=== PATIENT | female | born 1995 | race Caucasian/White ===

== ENCOUNTER 2019-05-31 06:45 | Inpatient (IN) | payer SELFPAY ==
[2019-05-31] VITALS (8 sets, daily range): BP systolic 80–128; BP diastolic 36–83
[~2019-05-31] VITALS: Ht 172 cm; Wt 86.4 kg
--- NOTE | 2019-05-31 06:55 | NUR ---
ROBERT BOOTH presented to unit via W/C from HOME/ED, accompanied by FAMILY, with c/o CONTRACTIONS, POSS WATER BROKE. ROBERT BOOTH weighed, gowned, voided, and to bed. EFHM and TOCO applied, VS taken. ROBERT BOOTH oriented to bed controls, call light, TV, heat, and A/C controls.
[2019-05-31] MEDS ORDERED: LACTATED RINGERS 1,000 ML IV ONE (07:11)
[2019-05-31] MEDS ORDERED: CITRIC ACID/SOB CIT (BICITRA) 30 ML UDC ONE (07:19)
[2019-05-31] MEDS ORDERED: METOCLOPRAMIDE INJ 10 MG/2 ML (REGLAN) ONE (07:19)
[2019-05-31] MEDS ORDERED: FAMOTIDINE 20MG/2ML IV (PEPCID) ONE (07:19)
[2019-05-31] MEDS ORDERED: ceFAZolin 2 GM IV Premixed 50 ML ONE (07:19)
[2019-05-31] MEDS ORDERED: LACTATED RINGERS 1,000 ML IV PRN ×2 (07:21)
[2019-05-31 07:30] LABS: BASOPHILS % (AUTO) 0 % (0-10); EOSINOPHILS % (AUTO) 0 % (0-10); HEMATOCRIT 42 % (35-52); HEMOGLOBIN 13.9 G/DL (11.5-16.0); LYMPHOCYTES # (AUTO) 1.3 X 10^3 (1.0-4.0); LYMPHOCYTES % (AUTO) 6 % (12-44); MEAN CORPUSCULAR HEMOGLOBIN 31 PG (25-34); MEAN CORPUSCULAR HGB CONC 33 G/DL (32-36); MEAN CORPUSCULAR VOLUME 94 FL (80-99); MEAN PLATELET VOLUME 11.5 FL (7.4-10.4); MONOCYTES # (AUTO) 1.2 X 10^3 (0.0-1.0); MONOCYTES % (AUTO) 6 % (0-12); NEUTROPHILS # (AUTO) 19.2 X 10^3 (1.8-7.8); NEUTROPHILS % (AUTO) 88 % (42-75); PLATELET COUNT 185 10^3/uL (130-400); RED CELL DISTRIBUTION WIDTH 14.2 % (10.0-14.5); WHITE BLOOD COUNT 21.7 10^3/uL (4.3-11.0)
[2019-05-31] MEDS ORDERED: METOCLOPRAMIDE INJ 10 MG/2 ML (REGLAN) IV ONE (07:30)
[2019-05-31] MEDS ORDERED: FAMOTIDINE 20MG/2ML IV (PEPCID) IV ONE (07:30)
[2019-05-31] MEDS ORDERED: CITRIC ACID/SOB CIT (BICITRA) 30 ML UDC PO ONE (07:30)
[2019-05-31] MEDS ORDERED: fentaNYL INJECTION 100 MCG/2 ML AMP ONE (07:38)
[2019-05-31] MEDS ORDERED: OXYTOCIN/NORMAL SALINE 1,000 ML IV ONE (07:39)
--- NOTE | 2019-05-31 07:39 | History & Physical-OB ---
OB - Chief Complaint & HPI Date/Time Date of Admission: Date of Admission: May 31, 2019 at 07:11 Date seen by a Provider: May 31, 2019 Time Seen by a Provider: 07:30 Chief Complaint/History Hx : 2 Hx Para: 1 Expected Date of Delivery: May 31, 2019 Gestational Age in Weeks: 2 Gestational Age in Days: 1 Indication for : desires repeat Admission Nurse Assessment Rev: Yes History of Labs No care Other Patient presents today with 9 cm dilatation and previous , no care. SROM at 0200, Patient reports that today is her due date. She had care with her first , but had for malpresentation. She wants to , however without no care, US or other counseling it was advised against strongly. Allergies and Home Medications Allergies Coded Allergies: No Known Drug Allergies (Unverified , 05/31/19) Patient Home Medication List Home Medication List Reviewed: Yes OB - History Hx of Present Care: No Other Concerns: Patient has none, but no prior contact Patient Past Medical History denies OB - Admission Exam Physical Exam HEENT: NCAT Heart: Rhythm Normal Lungs: Clear Abdomen: Gravid Reflexes: Normal Cervical Dilatation: 9cm Effacement: 100% Station: -1 Membranes: Intact Amniotic Fluid: Clear Heart Rate: 130's Accelerations: Accelerations Present Decelerations: Variable Decelerations Short Term Variability: Present Contractions on Admission: < 5 Minutes Apart Intensity: Mild Labs Laboratory Tests Test 05/31/19 07:20 Range/Units White Blood Count 21.7 H 4.3-11.0 10^3/uL Red Blood Count 4.44 4.35-5.85 10^6/uL Hemoglobin 13.9 11.5-16.0 G/DL Hematocrit 42 35-52 % Mean Corpuscular Volume 94 80-99 FL Mean Corpuscular Hemoglobin 31 25-34 PG Mean Corpuscular Hemoglobin Concent 33 32-36 G/DL Red Cell Distribution Width 14.2 10.0-14.5 % Platelet Count 185 130-400 10^3/uL Mean Platelet Volume 11.5 H 7.4-10.4 FL Neutrophils (%) (Auto) 88 H 42-75 % Lymphocytes (%) (Auto) 6 L 12-44 % Monocytes (%) (Auto) 6 0-12 % Eosinophils (%) (Auto) 0 0-10 % Basophils (%) (Auto) 0 0-10 % Neutrophils # (Auto) 19.2 H 1.8-7.8 X 10^3 Lymphocytes # (Auto) 1.3 1.0-4.0 X 10^3 Monocytes # (Auto) 1.2 H 0.0-1.0 X 10^3 Eosinophils # (Auto) 0.0 0.0-0.3 10^3/uL Basophils # (Auto) 0.0 0.0-0.1 10^3/uL OB - Assessment/Plan/Diagnosis Assessment Assessment: section Admission Dx 23 yo @ 40 weeks, per poor dating Previous 9 cm dilatation No care Admission Status: Inpatient Order (span 2 midnights) Reason for Inpatient Admission: Repeat Term No care Plan Plan: Section PEE ARIAS DO May 31, 2019 07:39 POS
[2019-05-31] MEDS ORDERED: ONDANSETRON 4 MG/2 ML (SDV) Z0FRAN IVP PRN (08:00)
[2019-05-31] MEDS ORDERED: BISACODYL 10 MG SUPP (DULCOLAX) PR PRN (08:00)
[2019-05-31] MEDS ORDERED: MEASLES,MUMPS,RUBELLA 1 EA INJ SC SCH (08:00)
[2019-05-31] MEDS ORDERED: TETANUS,DIPTH,PERTUSS P/F (BOOSTRIX) 0.5 ML VIAL IM SCH (08:00)
[2019-05-31] MEDS ORDERED: HYDROcodone/APAP 5 MG/325 MG (LORTAB) TAB PO PRN (08:00)
[2019-05-31 08:16] LABS: BAND NEUTROPHILS 1 %; BASOPHILS % (MANUAL) 0 %; EOSINOPHILS % (MANUAL) 0 %; LYMPHOCYTES % (MANUAL) 6 %; MONOCYTES % (MANUAL) 4 %; NEUTROPHILS % (MANUAL) 89 %
[2019-05-31 08:17] LABS: RBC MORPH NORMAL
[2019-05-31] MEDS ORDERED: ceFAZolin 2 GM IV Premixed 50 ML IV ONE (08:45)
[2019-05-31] MEDS ORDERED: OXYTOCIN/NORMAL SALINE 500 ML IV ONE (09:34)
[2019-05-31] MEDS: KETOROLAC 30 MG/ML VIAL IV SCH ×3 (09:38→21:01)
--- NOTE | 2019-05-31 09:47 | NUR ---
ferrell catheter dc'd. 50cc urine noted. keily-care offered. FFu/2. lt rubra noted. v-pad and panties in place.
--- NOTE | 2019-05-31 09:57 | NUR ---
pt transferred to room 307 via bed with this RN @ side. call light within reach.
[2019-05-31] MEDS ORDERED: FLU QUADRIvalent (5+ YOA) 2019-2020 (AFLURIA) 0.5 ML IM ONE (10:15)
--- NOTE | 2019-05-31 13:57 | OPERATIVE REPORT ---
DATE OF SERVICE: 05/31/2019 PREOPERATIVE DIAGNOSES: 1. A 23-year-old G2, P1 at an estimated due date of 40 weeks' gestation based on the patient's history. 2. No care. 3. Previous section. POSTOPERATIVE DIAGNOSES: 1. A 23-year-old G2, P1 at an estimated due date of 40 weeks' gestation based on the patient's history. 2. No care. 3. Previous section. PROCEDURE: Repeat low transverse section. SURGEON: Ronald Arias DO QUALITY ANALYST: Ramon Rosario MD who is necessary for retraction of vital structures throughout the procedure. ANESTHESIA: Spinal. ESTIMATED BLOOD LOSS: 500 mL. URINE OUTPUT: 250 mL clear at the end of the procedure. FLUIDS: 1500 mL lactated Ringer's solution. FINDINGS: A live male infant weighing 7 pounds 3 ounces, Apgars of 8 and 9. Grossly normal appearing uterus, bilateral fallopian tubes and ovaries with serosal adhesions of the anterior uterine fundus to the anterior omentum and peritoneal wall. SPECIMEN SENT: Placenta. INDICATIONS FOR PROCEDURE: This 23-year-old female was a patient who had had no care and went into active labor at home at approximately midnight to 2 a.m. She reports spontaneous rupture of membranes at 2:00 a.m. Upon presenting to the hospital, she was found to be 9 cm dilated without having any further information of the patient and any prior lab works. I discussed with the patient the concerning risk of and risks involved with the with a patient with no care as well as concerns of no imaging of the fetus prior to delivery and unknown anatomic abnormalities, which although were unlikely were still a risk factor. After everything was discussed with the patient my highly recommended proceeding was to repeat . She was agreeable, consent was obtained, the patient was taken to the operating room. OPERATIVE REPORT IN DETAIL: Once in the operating room, spinal anesthesia was found to be adequate, she was placed in the supine position with leftward tilt, prepped and draped in normal sterile fashion. Timeout was performed and anesthesia was tested. A Pfannenstiel skin incision was then made with a knife through the previously existing scar and carried down to underlying fascia using Bovie cautery. Fascial incision extended laterally using Bovie cautery. Superior aspect of the fascial incision was then grasped with Lauren clamps, tented up and dissected off the underlying rectus muscles. The inferior aspect of the fascial incision was then grasped with Lauren clamps, tented up and dissected off the underlying rectus muscles. Rectus muscles were then dissected down the midline using sharp dissection, which I am able to extend it superiorly and inferiorly using Metzenbaum scissors. I then encountered the preperitoneal fatty tissue in the peritoneum. It is entered bluntly and extended using blunt traction. There are some filmy adhesions previously mentioned of the anterior uterus that had to be taken down in order to identify the lower uterine segment, which was found to be thinned out. I made a low transverse incision into the vesicouterine peritoneum and bluntly dissected off the lower uterine segment, creating a bladder flap. I then proceeded with my myotomy until membranes were visualized, at which point I extended the uterine incision laterally and superiorly using bandage scissors. The was found in vertex presentation. With gentle fundal pressure, the 's head was elevated up to the incision and delivered through the incision where the nares and oropharynx were bulb suctioned. Nuchal cord was reduced x1. Anterior and posterior shoulders were delivered. Infant was then brought to the operative field where the cord was doubly clamped and cut. Infant was taken off the field by Dr. Rosario for further attendance. Cord blood was collected. Three-vessel cord was intact. Placenta is delivered spontaneously thereafter. IV Pitocin was initiated to facilitate uterine contraction. Uterine fundus became firmer by manual massage. The uterus was then exteriorized and cleared of all endometrial clots and debris. I then proceeded with closing the uterine incision using 0 Vicryl suture in running locked fashion. Second layer imbricating 0 Monocryl was placed. Excellent hemostasis was noted after doing this, there is some bleeding on the anterior uterine fundus from taking down these adhesions. They were made hemostatic by placing two separate 3-0 Vicryl sutures in a [id number] fashion. I then covered this area with Interceed to prevent adhesion formation after I copiously irrigated the pelvis using normal saline. There was no active bleeding noted from any of my dissection planes. I then placed Interceed over my low transverse incision as well. I then removed the Vinod ring retractor and I proceeded with closing the peritoneum using 3-0 Vicryl suture in a running fashion. The rectus muscle reapproximated using 3-0 Vicryl suture in interrupted fashion. The fascia was reapproximated using 0 Vicryl suture in running fashion. Subcutaneous tissue was reapproximated using 3-0 plain in interrupted subcutaneous stitch and skin reapproximated using 4-0 Monocryl in a running subcuticular. Dermabond was applied to this incision to the incision and sterile dressing was placed over this. The patient tolerated the procedure well and sent to recovery area in stable condition. Lap and sponge counts were correct at the end of the procedure. Instrument counts were correct as well. Job ID: [id number] DocumentID: [id number] Dictated Date: 05/31/2019 09:09:33 Pole Climber Date: 05/31/2019 13:56:42 Dictated By: RONALD ARIAS DO
[2019-05-31] MEDS ORDERED: CATHETER FLUSH 10 ML SYR IV SCH (14:00)
--- NOTE | 2019-05-31 14:35 | NUR ---
assisted up to BR. voided without difficulty. keily-care offered.
--- NOTE | 2019-05-31 15:06 | NUR ---
report given to next shift.
[2019-05-31] MEDS: DOCUSATE SODIUM 100 MG (COLACE) CAP PO SCH ×2 (18:07→21:02)
[2019-06-01 00:45] VITALS: BP 108/71
[2019-06-01] MEDS: KETOROLAC 30 MG/ML VIAL IV SCH (03:41)
[2019-06-01 03:55] VITALS: BP 112/68
[2019-06-01 05:39] LABS: BASOPHILS % (AUTO) 0 % (0-10); EOSINOPHILS # (AUTO) 0.2 10^3/uL (0.0-0.3); EOSINOPHILS % (AUTO) 1 % (0-10); HEMATOCRIT 34 % (35-52); HEMOGLOBIN 10.8 G/DL (11.5-16.0); LYMPHOCYTES # (AUTO) 1.7 X 10^3 (1.0-4.0); LYMPHOCYTES % (AUTO) 13 % (12-44); MEAN CORPUSCULAR HEMOGLOBIN 31 PG (25-34); MEAN CORPUSCULAR HGB CONC 32 G/DL (32-36); MEAN CORPUSCULAR VOLUME 97 FL (80-99); MEAN PLATELET VOLUME 11.5 FL (7.4-10.4); MONOCYTES # (AUTO) 1.1 X 10^3 (0.0-1.0); MONOCYTES % (AUTO) 8 % (0-12); NEUTROPHILS # (AUTO) 10.5 X 10^3 (1.8-7.8); NEUTROPHILS % (AUTO) 78 % (42-75); PLATELET COUNT 145 10^3/uL (130-400); RED CELL DISTRIBUTION WIDTH 14.5 % (10.0-14.5); WHITE BLOOD COUNT 13.5 10^3/uL (4.3-11.0)
--- NOTE | 2019-06-01 07:15 | Progress Note ---
Standard Progress Note Progress Notes/Assess & Plan Date Seen by a Provider: Jun 01, 2019 Time Seen by a Provider: 07:00 Progress/Assessment & Plan Ms. Townsend had presented to the hospital 9 cm dilated, subsequently delivered by Dr. Joyce in my absence. When I saw Ms. Townsend she was without complaint and doing quite well. I will see her tomorrow for discharge. She was told to inform the Nursing Staff with any problems or complaints Assessment: from a Normal Spontaneous Vaginal Delivery Plan: Pain management and care. Final Diagnosis Intrauterine at 39 1/7 weeks--delivered BUTCH NAPOLES DO Jun 01, 2019 07:15 POS
--- NOTE | 2019-06-01 07:29 | Postpartum Progress Note ---
Note Note Day # 1 Subjective: Patient is without complaints. Ambulating, voiding. Tolerating a regular diet without nausea or vomiting. Normal lochia. Pain is well controlled with oral pain medications. Objective: Physical Exam: General - Alert and oriented, no apparent distress Abdomen - Soft, appropriately tender to palpation, non-distended, fundus firm at umbilicus Extremities - no edema, negative Angel's bilaterally Incision- c/d/i Assessment: POD 1 RLTCS Acute blood loss anemia Plan: Routine care. Encourage breast feeding. Encourage ambulation. Ferrous sulfate supplementation. Plan for discharge tomorrow Vitals - Labs Vital Signs - I&O Vital Signs Date Time Temp Pulse Resp B/P (MAP) Pulse Ox O2 Delivery O2 Flow Rate FiO2 06/01/19 03:55 36.8 97 18 112/68 (83) 97 Room Air 06/01/19 00:45 36.8 92 18 108/71 (83) 99 Room Air 05/31/19 21:05 37.5 98 18 127/79 (95) 99 Room Air 05/31/19 15:50 37.0 100 18 116/68 (84) 97 Room Air 05/31/19 12:31 36.7 98 18 121/78 (92) 99 Room Air 05/31/19 09:42 36.0 16 112/70 (84) 100 Room Air 05/31/19 09:42 36.0 81 18 112/70 (84) 100 Room Air 05/31/19 09:42 Room Air 05/31/19 09:25 Room Air 05/31/19 09:25 36.0 16 114/76 (89) 100 Room Air 05/31/19 09:10 Room Air 05/31/19 09:10 36.2 16 113/66 (82) 98 Room Air 05/31/19 08:53 36.4 16 80/36 (51) 96 Room Air 05/31/19 08:53 Room Air I & O 06/01/19 07:00 Intake Total 2050 ml Output Total 750 ml Balance 1300 ml Labs Laboratory Tests 06/01/19 05:16: White Blood Count 13.5H, Red Blood Count 3.48L, Hemoglobin 10.8#L, Hematocrit 34L, Mean Corpuscular Volume 97, Mean Corpuscular Hemoglobin 31, Mean Corpuscular Hemoglobin Concent 32, Red Cell Distribution Width 14.5, Platelet Count 145, Mean Platelet Volume 11.5H, Neutrophils (%) (Auto) 78H, Lymphocytes (%) (Auto) 13, Monocytes (%) (Auto) 8, Eosinophils (%) (Auto) 1, Basophils (%) (Auto) 0, Neutrophils # (Auto) 10.5H, Lymphocytes # (Auto) 1.7, Monocytes # (Auto) 1.1H, Eosinophils # (Auto) 0.2, Basophils # (Auto) 0.0 PEE ARIAS DO Jun 01, 2019 07:29 POS
[2019-06-01] MEDS ORDERED: ACHD5005 PO (07:37)
[2019-06-01] MEDS ORDERED: IBUP-844 PO (07:37)
[2019-06-01] MEDS ORDERED: DOCU100C37 PO (07:37)
--- NOTE | 2019-06-01 07:38 | Discharge Inst-Women's Service ---
Discharge Inst-Women's Serv Depart Medication/Instructions New, Converted or Re-Newed RX: RX on Chart Final Diagnosis POD 2 RLTCS Problems Reviewed?: Yes Consults/Follow Up Additional Follow Up: Yes Orders/Referrals Dr. Joyce in 7-10 days and in 6 weeeks Activity Activity: Activity as Tolerated Driving Instructions: No Driving for 1 Week NO SMOKING: NO SMOKING Nothing Inside Vagina: No Douching, No Kiana, No Tampons Diet Discharge Diet: No Restrictions Symptoms to Report to : Bleeding Excessive, Pain Increased, Fever Over 101 Degrees F, Vaginal Bleeding Increase, Questions/Concerns For Any Problems or Questions: Contact Your Physician Skin/Wound Care Infection Signs and Symptoms: Increased Redness, Foul Odor of Wound, Increased Drainage, Skin Itchy or Has a Rash, Increased Swelling, Temperature Above 101 F Operative Area Clean and Dry: Keep Incision Clean/Dry Stitches/Malissa/Dermabond: Dermabond, Care of Stitches Bathing Instructions: PEE Rosenbaum DO Jun 01, 2019 07:38 POS
--- NOTE | 2019-06-01 08:20 | NUR ---
DR. ARIAS TO PT'S BEDSIDE.
[2019-06-01 09:44] VITALS: BP 126/80
[2019-06-01] MEDS: IBUPROFEN 600 MG (MOTRIN) TAB PO SCH ×3 (09:46→22:20)
[2019-06-01] MEDS: DOCUSATE SODIUM 100 MG (COLACE) CAP PO SCH ×2 (09:46→22:20)
--- NOTE | 2019-06-01 09:47 | NUR ---
PT SITTING UP IN THE CHAIR, JUST FINISHED . VS OBTAINED. MEDS GIVEN PO; SEE EMAR FOR FURTHER. SHOWER SET UP PER REQUEST. S/O AT THE BEDSIDE. NO FURTHER NEEDS VOICED.
--- NOTE | 2019-06-01 09:50 | Postpartum Progress Note ---
Note Note Day # 1 Subjective: Patient is without complaints. Ambulating, voiding. Tolerating a regular diet without nausea or vomiting. Normal lochia. Pain is well controlled with oral pain medications. [] feeding. [] Objective: Physical Exam: General - Alert and oriented, no apparent distress Abdomen - Soft, appropriately tender to palpation, non-distended, fundus firm at umbilicus Extremities - no edema, negative Angel's bilaterally Incision- c/d/i Assessment: POD 1 RLTCS Acute blood loss anemia Plan: Routine care. Encourage breast feeding. Encourage ambulation. Ferrous sulfate supplementation. Plan for discharge tomorrow Vitals - Labs Vital Signs - I&O Vital Signs Date Time Temp Pulse Resp B/P (MAP) Pulse Ox O2 Delivery O2 Flow Rate FiO2 06/01/19 09:44 37.3 100 18 126/80 (95) 99 Room Air 06/01/19 03:55 36.8 97 18 112/68 (83) 97 Room Air 06/01/19 00:45 36.8 92 18 108/71 (83) 99 Room Air 05/31/19 21:05 37.5 98 18 127/79 (95) 99 Room Air 05/31/19 15:50 37.0 100 18 116/68 (84) 97 Room Air 05/31/19 12:31 36.7 98 18 121/78 (92) 99 Room Air I & O 06/01/19 07:00 Intake Total 2650 ml Output Total 750 ml Balance 1900 ml Labs Laboratory Tests 06/01/19 05:16: White Blood Count 13.5H, Red Blood Count 3.48L, Hemoglobin 10.8#L, Hematocrit 34L, Mean Corpuscular Volume 97, Mean Corpuscular Hemoglobin 31, Mean Corpuscular Hemoglobin Concent 32, Red Cell Distribution Width 14.5, Platelet Count 145, Mean Platelet Volume 11.5H, Neutrophils (%) (Auto) 78H, Lymphocytes (%) (Auto) 13, Monocytes (%) (Auto) 8, Eosinophils (%) (Auto) 1, Basophils (%) (Auto) 0, Neutrophils # (Auto) 10.5H, Lymphocytes # (Auto) 1.7, Monocytes # (Auto) 1.1H, Eosinophils # (Auto) 0.2, Basophils # (Auto) 0.0 PEE ARIAS DO Jun 01, 2019 9:50 am POS
--- NOTE | 2019-06-01 12:30 | Anesthesia-Regional Post-Op ---
Regional Patient Condition Mental Status: Alert, Oriented x3 Circulation: Same as Pre-Op Headache: Absent Sensation: Full Recovery Motor Block: Absent Post Op Complications Complications None Follow Up Care/Instructions Patient Instructions None needed. Anesthesia/Patient Condition Patient is doing well, no complaints, stable vital signs, no apparent adverse anesthesia problems. GABRIELLE VALDEZ DO Jun 01, 2019 12:30 POS
--- NOTE | 2019-06-01 13:25 | NUR ---
PT IN BED, PHYSICAL ASSESSMENT COMPLETED; SEE INTERVENTION FOR FURTHER. PT DENIES ANY NEEDS AT THIS TIME.
--- NOTE | 2019-06-01 15:18 | NUR ---
PT OUT WALKING HALLWAYS.
[2019-06-01 15:57] VITALS: BP 116/71
[2019-06-01 22:44] VITALS: BP 128/77
[2019-06-02 04:07] VITALS: BP 113/65
[2019-06-02] MEDS: IBUPROFEN 600 MG (MOTRIN) TAB PO SCH ×2 (04:24→09:49)
[2019-06-02 08:00] VITALS: BP 102/61
--- NOTE | 2019-06-02 08:00 | NUR ---
A.M. ASSESSMENT COMPLETED. VSS. PT REFUSED FLU AND TDAP VACCINES. CARING FOR IN ROOM.
--- NOTE | 2019-06-02 08:06 | Postpartum Progress Note ---
Note Note Day # 2 Subjective: Patient is without complaints. Ambulating, voiding. Tolerating a regular diet without nausea or vomiting. Normal lochia. Pain is well controlled with oral pain medications. Objective: Physical Exam: General - Alert and oriented, no apparent distress Abdomen - Soft, appropriately tender to palpation, non-distended, fundus firm at umbilicus Extremities - no edema, negative Angel's bilaterally Incision- c/d/i Assessment: POD 2 RLTCS Acute blood loss anemia Plan: Routine care. Encourage breast feeding. Encourage ambulation. Ferrous sulfate supplementation. Plan for discharge today Vitals - Labs Vital Signs - I&O Vital Signs Date Time Temp Pulse Resp B/P (MAP) Pulse Ox O2 Delivery O2 Flow Rate FiO2 06/02/19 04:07 36.5 81 18 113/65 (81) 97 Room Air 06/01/19 22:44 37.5 94 18 128/77 (94) 99 Room Air 06/01/19 15:57 36.9 93 18 116/71 (86) 99 Room Air 06/01/19 09:44 37.3 100 18 126/80 (95) 99 Room Air PEE ARIAS DO Jun 02, 2019 08:06 POS
--- NOTE | 2019-06-02 08:30 | NUR ---
DR. ARIAS HERE TO SEE PT.
--- NOTE | 2019-06-02 09:00 | NUR ---
AMBULATING IN THE HALLWAY PUSHING INFANT IN CRIB. ANXIOUS TO GO HOME TODAY.
[2019-06-02] MEDS: DOCUSATE SODIUM 100 MG (COLACE) CAP PO SCH (09:49)
--- NOTE | 2019-06-02 10:45 | NUR ---
DISCHARGE INSTRUCTIONS REVIEWED WITH COPY TO PT. RXS GIVEN. STATES UNDERSTANDING OF ALL INSTRUCTIONS AND NEED TO F/U SCHEDULED AND NEEDED.
--- NOTE | 2019-06-02 12:30 | NUR ---
CONTINUES TO WAIT ON RIDE HOME.
[2019-06-02 14:00] VITALS: BP 102/61
--- NOTE | 2019-06-02 14:00 | NUR ---
DISMISSED AMB FROM [facility] WITH INFANT TO FAMILY CAR IN STABLE CONDITION ACC BY SPOUSE,DIAMOND CLEAVER, AND AURY HAND.
== END 2019-06-02 14:00 | disposition home or self-care (01) | DRG 787 ==
LOC: WSo 06:45 → LDRP 06:46 → WSo 07:11 → LDRP 11:04
PROVIDERS: ADMIT Obstetrics & Gynecology; ATTEND Obstetrics & Gynecology
PROC: 10D00Z1 Extraction of Products of Conception, Low, Open Approach (ICD-10-PCS; principal; 2019-05-31 07:42)
DX: O34.211 Maternal care for low transverse scar from previous cesarean delivery (principal); O76 Abnormality in fetal heart rate and rhythm complicating labor and delivery; O09.33 Supervision of pregnancy with insufficient antenatal care, third trimester; O69.81X0 Labor and delivery complicated by cord around neck, without compression, not applicable or unspecified; O90.81 Anemia of the puerperium; D62 Acute posthemorrhagic anemia; Z37.0 Single live birth; Z3A.39 39 weeks gestation of pregnancy
CPT/HCPCS: 36415; 85007; 85025; 85027; 86850; 86900; 86901; 99212

== ENCOUNTER 2020-06-11 13:39 | Outpatient (RCR) | payer SELFPAY ==
[~2020-06-11] VITALS: Ht 170.2 cm; Wt 90.9 kg
[~2020-06-11 13:39] MED LIST: ACHD5005 PO; DOCU100C37 PO; IBUP-844 PO
[2020-06-11] MEDS ORDERED: PREN-8 PO (14:44)
== END 2020-06-11 14:48 | disposition home or self-care (01) ==
LOC: PREOP 13:39
PROVIDERS: ATTEND Obstetrics & Gynecology
DX: Z01.812 Encounter for preprocedural laboratory examination (principal); O44.10 Complete placenta previa with hemorrhage, unspecified trimester
CPT/HCPCS: 87081

== ENCOUNTER 2020-06-16 06:25 | Inpatient (IN) | payer OTHER ==
[~2020-06-16] VITALS: Ht 170.2 cm; Wt 92.3 kg
[2020-06-16] VITALS (9 sets, daily range): BP systolic 103–135; BP diastolic 45–77
--- NOTE | 2020-06-16 06:20 | NUR ---
ROBERT BOOTH presented to unit via ambulation from home/ED, accompanied by SO, for . ROBERT BOOTH weighed, gowned, voided, and to bed. EFHM and TOCO applied, VS taken. ROBERT BOOTH oriented to bed controls, call light, TV, heat, and A/C controls.
[~2020-06-16 06:25] MED LIST changes: +CITRIC ACID/SOB CIT (BICITRA) 30 ML UDC ONE; +FAMOTIDINE 20MG/2ML IV (PEPCID) ONE; +LACTATED RINGERS 1,000 ML IV ONE; +METOCLOPRAMIDE INJ 10 MG/2 ML (REGLAN) ONE; +PREN-8 PO; +ceFAZolin 2 GM IV Premixed 50 ML ONE
[2020-06-16] MEDS ORDERED: ceFAZolin 2 GM IV Premixed 50 ML IV ONE (06:30)
[2020-06-16] MEDS ORDERED: LACTATED RINGERS 1,000 ML IV PRN ×2 (06:31)
[2020-06-16] MEDS ORDERED: FAMOTIDINE 20MG/2ML IV (PEPCID) IV ONE (06:45)
[2020-06-16] MEDS ORDERED: CITRIC ACID/SOB CIT (BICITRA) 30 ML UDC PO ONE (06:45)
[2020-06-16] MEDS ORDERED: METOCLOPRAMIDE INJ 10 MG/2 ML (REGLAN) IV ONE (06:45)
[2020-06-16] MEDS ORDERED: fentaNYL INJECTION 100 MCG/2 ML AMP ONE (07:00)
[2020-06-16 07:06] LABS: BASOPHILS % (AUTO) 0 % (0-10); EOSINOPHILS # (AUTO) 0.1 10^3/uL (0.0-0.3); EOSINOPHILS % (AUTO) 1 % (0-10); HEMATOCRIT 37 % (35-52); HEMOGLOBIN 11.6 g/dL (11.5-16.0); LYMPHOCYTES # (AUTO) 1.6 10^3/uL (1.0-4.0); LYMPHOCYTES % (AUTO) 18 % (12-44); MEAN CORPUSCULAR HEMOGLOBIN 31 pg (25-34); MEAN CORPUSCULAR HGB CONC 31 g/dL (32-36); MEAN CORPUSCULAR VOLUME 99 fL (80-99); MEAN PLATELET VOLUME 11.6 fL (9.0-12.2); MONOCYTES # (AUTO) 0.8 10^3/uL (0.0-1.0); MONOCYTES % (AUTO) 9 % (0-12); NEUTROPHILS # (AUTO) 6.4 10^3/uL (1.8-7.8); NEUTROPHILS % (AUTO) 71 % (42-75); PLATELET COUNT 189 10^3/uL (130-400); WHITE BLOOD COUNT 9.1 10^3/uL (4.3-11.0)
--- NOTE | 2020-06-16 07:13 | History & Physical-OB ---
OB - Chief Complaint & HPI Date/Time Date of Admission: Date of Admission: Jun 16, 2020 at 06:48 Date seen by a Provider: Jun 16, 2020 Time Seen by a Provider: 07:03 Chief Complaint/History OB-Reason for Admission/Chief: Section Hx : 4 Hx Para: 2 Expected Date of Delivery: Jul 20, 2020 Gestational Age in Weeks: 35 Gestational Age in Days: 1 Indication for : desires repeat Other reason for admission: Patient admitted for delivery at 35 weeks secondary to complete placenta previa with history of hemorrhage at 28 weeks. Admission Nurse Assessment Rev: Yes History of Labs Obtaining Prenatals from Dr. Smallwood Allergies and Home Medications Allergies Coded Allergies: No Known Drug Allergies (Unverified , 05/31/19) Home Medications Vit W-Ca,Fe,FA(<1 mg) 1 Each Tablet, 1 EACH PO DAILY, (Reported) Patient Home Medication List Home Medication List Reviewed: Yes OB - History Hx of Present Care: Yes Ultrasounds: Abnormal US findings (Complete placenta previa) Obstetrical Complications: None Medical Complications: None Patient Past Medical History denies Social History/Family History Recent Infectious Disease Expo: No Alcohol Use: Occasionally Uses Recreational Drug Use: No OB - Admission Exam Physical Exam HEENT: NCAT Heart: Rhythm Normal Lungs: Clear Abdomen: Gravid Extremities: Normal Reflexes: Normal Heart Rate: 130's Accelerations: Accelerations Present Decelerations: No Decelerations Short Term Variability: Present Care Home Variability: Average (6-25) Contractions on Admission: >10 Minutes Apart Intensity: Mild Labs Laboratory Tests Test 06/16/20 06:58 Range/Units OB - Assessment/Plan/Diagnosis Assessment Assessment: section Admission Dx 24 yo @ 35.1 weeks Complete previa Limited care. Admission Status: Inpatient Order (span 2 midnights) Reason for Inpatient Admission: Repeat ceserean Placenta previa Plan Plan: Section PEE ARIAS DO Jun 16, 2020 07:13
[2020-06-16] MEDS ORDERED: METHYLERGONOVINE 0.2 MG/ML (METHERGINE) AMP ONE ×2 (07:37→10:39)
[2020-06-16] MEDS ORDERED: CARBOPROST (HEMABATE) 250 MCG/ML AMP IM ONE (07:37)
[2020-06-16] MEDS ORDERED: HYDROcodone/APAP 5 MG/325 MG (LORTAB) TAB PO PRN (07:45)
[2020-06-16] MEDS ORDERED: TETANUS,DIPTH,PERTUSS P/F (BOOSTRIX) 0.5 ML VIAL IM SCH (07:45)
[2020-06-16] MEDS ORDERED: MEASLES,MUMPS,RUBELLA 1 EA INJ SC SCH (07:45)
[2020-06-16] MEDS ORDERED: ONDANSETRON 4 MG/2 ML (SDV) Z0FRAN IVP PRN (07:45)
[2020-06-16] MEDS ORDERED: OXYTOCIN PRE-MIX DRIP 500 ML IV ONE ×3 (07:46→12:16)
[2020-06-16] MEDS ORDERED: ONDANSETRON 4 MG/2 ML (SDV) Z0FRAN ONE (07:46)
[2020-06-16] MEDS ORDERED: diphenhydrAMINE 50 MG/ML INJ (BENADRYL) ONE (08:09)
[2020-06-16] MEDS ORDERED: diphenhydrAMINE 50 MG/ML INJ (BENADRYL) IV PRN (08:45)
[2020-06-16] MEDS ORDERED: ACHD5005 PO (08:45)
[2020-06-16] MEDS ORDERED: ONDANSETRON 4 MG/2 ML (SDV) Z0FRAN IV PRN (08:45)
[2020-06-16] MEDS ORDERED: IBUP-844 PO (08:45)
[2020-06-16] MEDS ORDERED: DCS100C PO (08:45)
[2020-06-16] MEDS ORDERED: NALOXONE 0.4 MG/ML 1 ML (NARCAN) VIAL IV PRN (08:45)
--- NOTE | 2020-06-16 08:46 | Discharge Inst-Women's Service ---
Discharge Inst-Women's Serv Depart Medication/Instructions New, Converted or Re-Newed RX: RX on Chart Final Diagnosis POD 2 RLTCS Problems Reviewed?: Yes Consults/Follow Up Additional Follow Up: Yes Orders/Referrals Dr. Joyce/Maida in 7-10 days, Dr. Smallwood in 6 weeks Activity Activity: Activity as Tolerated Driving Instructions: No Driving for 1 Week NO SMOKING: NO SMOKING Nothing Inside Vagina: No Douching, No [place] Diet Discharge Diet: No Restrictions Symptoms to Report to : Bleeding Excessive, Pain Increased, Fever Over 101 Degrees F, Vaginal Bleeding Increase, Questions/Concerns For Any Problems or Questions: Contact Your Physician Skin/Wound Care Infection Signs and Symptoms: Increased Redness, Foul Odor of Wound, Increased Drainage, Temperature Above 101 F Stitches/Cherry Log/Dermabond: Dermabond, Care of Stitches Bathing Instructions: PEE Rosenbaum DO Jun 16, 2020 08:46
[2020-06-16] MEDS: KETOROLAC 30 MG/ML VIAL IV SCH ×3 (08:52→21:33)
--- NOTE | 2020-06-16 09:23 | NUR ---
Pt to nsy to see via bed accompanied by RNs.
--- NOTE | 2020-06-16 09:40 | NUR ---
Pt to room via bed accompanied by RNs and S/O. Pt IV tubing changed to pump and IV fluids set. VSS. Pt oriented to room, call light, and environment. Pt instructed to call when urge to void. Pt verbalizes understanding and denies any needs or concerns at this time.
--- NOTE | 2020-06-16 10:25 | NUR ---
RN to room. Amber care offered, v-pad saturated. Fundal massage given, fundus boggy, firms with massage. Clots expressed. New v-pad in place. Weighed pad and lissa- [address] Joyce.
--- NOTE | 2020-06-16 10:35 | NUR ---
Dr. Joyce notified of pt update. New orders given to give 0.2 mg Methergine IM.
[2020-06-16] MEDS ORDERED: METHYLERGONOVINE 0.2 MG/ML (METHERGINE) AMP IM ONE (10:45)
--- NOTE | 2020-06-16 11:15 | NUR ---
RN to room. Pericare provided, fresh v pad applied. Fundal massage provided, fundus boggy, but firmed with massage. Clots expressed. Weighed vpad and lissa- 225ml.
[2020-06-16] MEDS ORDERED: METOCLOPRAMIDE 10 MG (REGLAN) TAB PO SCH (12:00)
--- NOTE | 2020-06-16 12:15 | NUR ---
RN to room. Pericare provided, fresh vpad on. Fundal massage provided, fundus boggy, but firms up with massage. Clot expressed aprox. 4cm. Vpad and chucks pad weighed- 195ml. Fresh vpad on.
--- NOTE | 2020-06-16 13:20 | NUR ---
RN to room. Fundal massage provided, FFU/-2. No clots expressed, light rubra lochia noted. VSS Pt denies any needs or concerns at this time.
[2020-06-16] MEDS ORDERED: CATHETER FLUSH 10 ML SYR IV SCH (14:00)
--- NOTE | 2020-06-16 15:06 | OPERATIVE REPORT ---
DATE OF SERVICE: PREOPERATIVE DIAGNOSES: 1. A 24-year-old G4, P2 at 35 weeks and 1 day gestation. 2. Complete placenta previa. 3. Previous . POSTOPERATIVE DIAGNOSES: 1. A 24-year-old G4, P2 at 35 weeks and 1 day gestation. 2. Complete placenta previa. 3. Previous . PROCEDURE: Repeat low transverse section. SURGEON: Ronald Joyce. SUPERVISOR TUBING: Maida Lewis DNP, who was necessary for manipulation and retraction throughout the procedure. ANESTHESIA: Spinal. ESTIMATED BLOOD LOSS: 500 mL. URINE OUTPUT: 100 mL clear at the end of the procedure. FLUIDS: 1500 mL of lactated Ringer's solution. FINDINGS: A live female weighing 5 pounds 7 ounces, Apgars of 8 and 9. Grossly normal appearing uterus, bilateral fallopian tubes and ovaries. SPECIMEN SENT: Placenta. INDICATIONS FOR PROCEDURE: This 24-year-old female is a patient who is consulted to my office at approximately 28, 29 weeks after having an acute hemorrhage during and found to have a complete placenta previa. Upon this finding, the patient was consulted to my office from Dr. Smallwood in [place]. The patient lives in [facility] and had limited care when she had seen. recommended delivery at 35 weeks with bleeding episodes. She received betamethasone on two separate doses at that time, at which point she was scheduled for 35 weeks after the risks of the procedure including the risk to baby and prematurity were discussed with the patient in detail. After all her questions were answered in the preoperative area, the patient was taken to the operating room after the consent was obtained. OPERATIVE REPORT IN DETAIL: Once in the operating room, spinal analgesia was found to be adequate. She was placed in supine position with leftward tilt, prepped and draped in normal sterile fashion. Timeout was performed and anesthesia was tested. I then make a Pfannenstiel skin incision through the previously existing scar using a knife and carried down to underlying fascia using Bovie cautery. The fascial incision was extended laterally using Bovie cautery. Superior aspect of the fascial incision was then grasped with Lauren clamps, tented up and dissected off the underlying rectus muscles. The inferior aspect of the fascial incision was then grasped with Lauren clamps, tented up and dissected off the underlying rectus muscles. Rectus muscle was then dissected down the midline using Thornton scissors, which exposed the peritoneum, which I entered bluntly and extended using blunt traction. Vinod ring retractor was placed within the peritoneal incision, which offers excellent lateral sidewall retraction. I then identified the lower uterine segment, which was found to be thinned out and make a low transverse incision to the vesicouterine peritoneum and bluntly dissected off the lower uterine segment. I proceeded with myotomy until membranes were visualized, at which point I extended the uterine incision laterally and superiorly using bandage scissors. Amniotomy was performed in the process of doing this, clear fluid was noted. was found in the left transverse presentation. I bring the 's head down to the incision where it is delivered through the incision by gently elevating the head where the nares and oropharynx were bulb suctioned. Anterior and posterior shoulders were delivered. was then brought to the operative field with cord doubly clamped and cut and handed off to Dr. Burciaga, who was present for delivery. Cord blood was collected, 3-vessel cord with intact placenta was delivered spontaneously thereafter. There was notation of the implantation of the placenta to the cervix and there is evidence of an old blood clot on the placenta from her previous hemorrhage had occurred. IV Pitocin was then initiated to facilitate uterine contraction. Uterine fundus confirmed by manual massage. Uterus was then exteriorized and cleared of all endometrial clots and debris. I then proceeded with closing the uterine incision using 0 Vicryl suture in running locked fashion. Second layer of imbricating 0 Monocryl was placed. Excellent hemostasis was noted after doing this. I then placed the uterus back in the pelvis and copiously irrigated the pelvis using normal saline. There was no active bleeding noted from any of my dissection planes. I placed Interceed antiadhesive over my low transverse incision. I then removed the Vinod ring retractor and proceeded with closing the peritoneum using 3-0 Vicryl suture in a running fashion. The rectus muscle reapproximated using 3-0 Vicryl suture in interrupted fashion. The fascia was reapproximated using 0 Vicryl suture in running fashion. Subcutaneous tissue was reapproximated using 3-0 plain interrupted subcutaneous stitch and skin reapproximated using 4-0 Monocryl running subcuticular. Dermabond was applied to incision and sterile dressing was adhesed with white tape. The patient tolerated the procedure well and sent to recovery in stable condition. Lap and sponge counts were correct at the end of the procedure. Instrument counts correct as well. Job ID: [id number] DocumentID: [id number] Dictated Date: 06/16/2020 08:56:34 Quenching Machine Operator Date: 06/16/2020 15:05:38 Dictated By: DO FARRUKH MAYA
--- NOTE | 2020-06-16 16:15 | NUR ---
RN to room, pericare provided. Fundal massage provided, boggy but firm with massage. No clots expressed. Pt assisted to bathroom with + void.
--- NOTE | 2020-06-16 16:30 | NUR ---
Report rec'd from Mariann Guajardo RN
--- NOTE | 2020-06-16 20:00 | NUR ---
Nurse at pt bedside. Pt. sitting on side of bed talking to . Bleeding assessed and WNL's. Pt. states she has little to no pain at this time. Questions answered about discharge. Pt. has no other questions or concerns at this time.
[2020-06-16] MEDS: DOCUSATE SODIUM 100 MG (COLACE) CAP PO SCH (21:33)
[2020-06-17 01:15] VITALS: BP 114/58
[2020-06-17] MEDS: KETOROLAC 30 MG/ML VIAL IV SCH (03:21)
[2020-06-17 05:24] VITALS: BP 111/59
[2020-06-17 05:40] LABS: BASOPHILS % (AUTO) 0 % (0-10); EOSINOPHILS # (AUTO) 0.2 10^3/uL (0.0-0.3); EOSINOPHILS % (AUTO) 2 % (0-10); HEMATOCRIT 30 % (35-52); HEMOGLOBIN 9.5 g/dL (11.5-16.0); LYMPHOCYTES # (AUTO) 1.6 10^3/uL (1.0-4.0); LYMPHOCYTES % (AUTO) 15 % (12-44); MEAN CORPUSCULAR HEMOGLOBIN 31 pg (25-34); MEAN CORPUSCULAR HGB CONC 31 g/dL (32-36); MEAN CORPUSCULAR VOLUME 98 fL (80-99); MEAN PLATELET VOLUME 11.7 fL (9.0-12.2); MONOCYTES # (AUTO) 0.8 10^3/uL (0.0-1.0); MONOCYTES % (AUTO) 8 % (0-12); NEUTROPHILS % (AUTO) 75 % (42-75); PLATELET COUNT 155 10^3/uL (130-400); WHITE BLOOD COUNT 10.6 10^3/uL (4.3-11.0)
[2020-06-17] MEDS ORDERED: IBUPROFEN 600 MG (MOTRIN) TAB PO SCH (07:45)
--- NOTE | 2020-06-17 08:06 | Postpartum Progress Note ---
Note Note Day # 1 Subjective: Patient is without complaints. Ambulating, voiding. Tolerating a regular diet without nausea or vomiting. Normal lochia. Pain is well controlled with oral pain medications. Objective: Physical Exam: General - Alert and oriented, no apparent distress Abdomen - Soft, appropriately tender to palpation, non-distended, fundus firm at umbilicus Extremities - no edema, negative Angel's bilaterally Incision- c/d/i Assessment: POD 1 RLTCS Acute blood loss anemia Plan: Routine care. Encourage breast feeding. Encourage ambulation. Ferrous sulfate supplementation. Plan for discharge today Vitals - Labs Vital Signs - I&O Vital Signs Date Time Temp Pulse Resp B/P (MAP) Pulse Ox O2 Delivery O2 Flow Rate FiO2 06/17/20 05:24 36.9 86 18 111/59 (76) 99 Room Air 06/17/20 01:15 36.5 74 20 114/58 (76) 98 Room Air 06/16/20 21:00 36.6 96 16 122/68 (86) 98 Room Air 06/16/20 18:00 36.8 91 18 124/58 (80) 98 Room Air 06/16/20 12:57 36.8 93 18 118/63 (81) 97 Room Air 06/16/20 09:45 35.8 69 18 106/77 (87) 100 Room Air 06/16/20 09:17 Room Air 06/16/20 09:17 35.7 18 108/56 (73) 100 Room Air 06/16/20 09:02 Room Air 06/16/20 09:02 35.9 18 103/60 (74) 100 Room Air 06/16/20 08:46 Room Air 06/16/20 08:46 36.3 18 107/45 (65) 100 Room Air 06/16/20 08:31 Room Air 06/16/20 08:31 36.4 18 109/48 (68) 97 Room Air I & O 06/17/20 07:00 Intake Total 1050 ml Output Total 100 ml Balance 950 ml Labs Laboratory Tests 06/16/20 09:55: Thyroid Stimulating Hormone (TSH) 1.38, Syphilis Serology Non-Reactive, Hepatitis B Surface Antigen Non-Reactive, HIV (1&2) Ag and Ab Screen Referral Non-Reactive, Rubella IgG Antibody 0.17, Rubella IgG Ab Interpretation Negative, Rubeola (Measles) IgG Antibody <5.0, Rubeola (Measles) IgG Ab Interpret Negative 06/17/20 05:15: White Blood Count 10.6, Red Blood Count 3.09L, Hemoglobin 9.5L, Hematocrit 30L, Mean Corpuscular Volume 98, Mean Corpuscular Hemoglobin 31, Mean Corpuscular Hemoglobin Concent 31L, Red Cell Distribution Width 14.3, Platelet Count 155, Mean Platelet Volume 11.7, Immature Granulocyte % (Auto) 0, Neutrophils (%) (Auto) 75, Lymphocytes (%) (Auto) 15, Monocytes (%) (Auto) 8, Eosinophils (%) (Auto) 2, Basophils (%) (Auto) 0, Neutrophils # (Auto) 8.0H, Lymphocytes # (Auto) 1.6, Monocytes # (Auto) 0.8, Eosinophils # (Auto) 0.2, Basophils # (Auto) 0.0, Immature Granulocyte # (Auto) 0.0 PEE ARIAS DO Jun 17, 2020 08:06
[2020-06-17 08:57] VITALS: BP 111/61
[2020-06-17] MEDS: DOCUSATE SODIUM 100 MG (COLACE) CAP PO SCH (08:57)
--- NOTE | 2020-06-17 08:57 | NUR ---
initial shift assessment completed, see interventions for further.
--- NOTE | 2020-06-17 10:26 | NUR ---
dismissal instructions given, verbalizes understanding. reviewed medication administration and schedule. reviewed follow up appointments. signature page signed, placed on chart.
--- NOTE | 2020-06-17 10:40 | NUR ---
pt ambulated to private vehicle with @ side. pt stable with no sx's of distress noted.
== END 2020-06-17 10:40 | disposition home or self-care (01) | DRG 786 ==
LOC: WSo 06:25 → LDRP 06:26 → WSo 06:48 → LDRP 06:48 → WS 13:26 → LDRP 13:26
PROVIDERS: ADMIT Obstetrics & Gynecology; ATTEND Obstetrics & Gynecology
PROC: 10D00Z1 Extraction of Products of Conception, Low, Open Approach (ICD-10-PCS; principal; 2020-06-16 07:23)
DX: O60.14X0 Preterm labor third trimester with preterm delivery third trimester, not applicable or unspecified (principal); O44.13 Complete placenta previa with hemorrhage, third trimester; D62 Acute posthemorrhagic anemia; Z3A.35 35 weeks gestation of pregnancy; Z37.0 Single live birth; O34.211 Maternal care for low transverse scar from previous cesarean delivery; O90.81 Anemia of the puerperium
CPT/HCPCS: 36415; 84443; 85025; 86703; 86762; 86765; 86780; 86850; 86900; 86901; 87340; 87635; 94664

== ENCOUNTER 2023-06-28 10:50 | Inpatient (IN) | payer SELFPAY ==
[2023-06-28] VITALS (20 sets, daily range): BP systolic 99–146; BP diastolic 35–89
[~2023-06-28 10:50] MED LIST changes: -CITRIC ACID/SOB CIT (BICITRA) 30 ML UDC ONE; +DOCU-239 PO; -FAMOTIDINE 20MG/2ML IV (PEPCID) ONE; -LACTATED RINGERS 1,000 ML IV ONE; -METOCLOPRAMIDE INJ 10 MG/2 ML (REGLAN) ONE; -ceFAZolin 2 GM IV Premixed 50 ML ONE
--- NOTE | 2023-06-28 12:26 | History & Physical-OB ---
OB - Chief Complaint & HPI Date/Time Date of Admission: Date of Admission: Date seen by a Provider: Jun 28, 2023 Time Seen by a Provider: 12:15 Chief Complaint/History Hx : 4 Hx Para: 3 Expected Date of Delivery: Jul 03, 2023 Gestational Age in Weeks: 39 Gestational Age in Days: 2 Indication for : desires repeat Other reason for admission: Patient admitted without any care. Presents with vaginal bleeding and hx of c/s x 3. Bedside US shows 39 week fetus, 41 weeks by LMP. Admission Nurse Assessment Rev: Yes Allergies and Home Medications Allergies Coded Allergies: No Known Drug Allergies (Unverified , 05/31/19) Patient Home Medication List Home Medication List Reviewed: Yes Docusate Sodium (Dok) 100 Mg Capsule, 100 MG PO BID PRN for CONSTIPATION-1ST LINE Prescribed by: PEE ARIAS on 06/16/20 0845 Hydrocodone/Acetaminophen (Hydrocodone-Acetamin 5-325 mg) 1 Each Tablet, 1-2 TAB PO Q6HR PRN for PAIN-MODERATE (5-7) Prescribed by: PEE ARIAS on 06/16/20 0845 Ibuprofen (Ibu) 600 Mg Tablet, 600 MG PO Q6H Prescribed by: PEE ARIAS on 06/16/20 0845 Vit W-Ca,Fe,FA(<1 mg) ( Formula) 1 Each Tablet, 1 EACH PO DAILY, (Reported) Entered as Reported by: YOLY MARTINEZ on 06/11/20 1444 OB - History Hx of Present Care: No Ultrasounds: No ultrasounds Obstetrical Complications: None Medical Complications: None Patient Past Medical History denies OB - Admission Exam Physical Exam HEENT: NCAT Heart: Rhythm Normal Lungs: Clear Abdomen: Gravid Extremities: Normal Reflexes: Normal Heart Rate: 130's Accelerations: Accelerations Present Decelerations: No Decelerations Short Term Variability: Present Manager Mba Variability: Average (6-25) Contractions on Admission: 6-10 Minutes Apart Intensity: Mild OB - Assessment/Plan/Diagnosis Assessment Assessment: section Admission Dx 27 yo @ 39 weeks Previous x 3 GBS unknown No care Admission Status: Inpatient Order (span 2 midnights) Reason for Inpatient Admission: RCS at 39 weeks Plan Plan: Section PEE ARIAS DO Jun 28, 2023 12:26
[2023-06-28] MEDS ORDERED: LACTATED RINGERS 1,000 ML 500 ML IV PRN (12:30)
[2023-06-28] MEDS ORDERED: D5 LR 1,000 ML IV SOLN 1,000 ML IV SCH (12:30)
[2023-06-28] MEDS ORDERED: MINERAL OIL 30 ML UDC TOP PRN (12:30)
[2023-06-28] MEDS ORDERED: CATHETER FLUSH 10 ML SYR IV PRN (13:15)
[2023-06-28] MEDS ORDERED: FAMOTIDINE INJ 20MG/2ML VIAL IV ONE (13:15)
[2023-06-28] MEDS ORDERED: LACTATED RINGERS 1,000 ML 1,000 ML IV PRN ×2 (13:15)
[2023-06-28] MEDS ORDERED: CITRIC ACID/SODIUM CITRATE ORAL SOLN 30 ML PO ONE (13:15)
[2023-06-28] MEDS ORDERED: METOCLOPRAMIDE INJ 10 MG/2 ML IV ONE (13:15)
[2023-06-28 13:29] LABS: BASOPHILS % (AUTO) 0 % (0-10); EOSINOPHILS # (AUTO) 0.1 10^3/uL (0.0-0.3); EOSINOPHILS % (AUTO) 1 % (0-10); HEMATOCRIT 37 % (35-52); HEMOGLOBIN 11.6 g/dL (11.5-16.0); LYMPHOCYTES # (AUTO) 1.8 10^3/uL (1.0-4.0); LYMPHOCYTES % (AUTO) 17 % (12-44); MEAN CORPUSCULAR HEMOGLOBIN 29 pg (25-34); MEAN CORPUSCULAR HGB CONC 32 g/dL (32-36); MEAN CORPUSCULAR VOLUME 92 fL (80-99); MEAN PLATELET VOLUME 11.8 fL (9.0-12.2); MONOCYTES # (AUTO) 0.7 10^3/uL (0.0-1.0); MONOCYTES % (AUTO) 7 % (0-12); NEUTROPHILS # (AUTO) 8.2 10^3/uL (1.8-7.8); NEUTROPHILS % (AUTO) 75 % (42-75); PLATELET COUNT 191 10^3/uL (130-400); WHITE BLOOD COUNT 10.9 10^3/uL (4.3-11.0)
[2023-06-28] MEDS ORDERED: NS (IVPB) 50 ML 50 ML ONE (13:41)
[2023-06-28] MEDS ORDERED: ceFAZolin INJECTION 2,000 MG ONE (13:41)
[2023-06-28] MEDS ORDERED: CATHETER FLUSH 10 ML SYR IV SCH (14:00)
[2023-06-28] MEDS ORDERED: OXYTOCIN DRIP PRE-MIX 1,000 ML IV ONE (15:31)
[2023-06-28] MEDS ORDERED: fentaNYL INJECTION 100 MCG/2 ML VIAL ONE ×2 (15:32→15:40)
[2023-06-28] MEDS ORDERED: [UNRECOGNIZED DRUG - OTHER] ONE (15:40)
[2023-06-28] MEDS ORDERED: DEXT ONE (15:40)
[2023-06-28] MEDS ORDERED: ceFAZolin INJECTION 2,000 MG in NS (IVPB) 50 ML 50 ML IV ONE (15:45)
--- NOTE | 2023-06-28 16:56 | Diagnostic Imaging Report ---
INDICATION: Biophysical profile. Post term TECHNIQUE: Multiple real-time grayscale images were obtained over the gravid uterus. COMPARISON: None FINDINGS: Single live imaging is in cephalic presentation. HEATHER is normal at 11.7 cm. Throughout the examination, normal movement and tone is identified. However, no breathing movements are identified. Biometrical measurements are as follows: Biparietal 9.62 cm, age 39 weeks 3 days. Head circumference 35.44 cm, age 41 weeks 4 days. Abdominal circumference 35.05 cm, age 39 weeks 0 days. Femur length 7.73 cm, age 39 weeks 4 days. Sonographic estimate age: 39 weeks 3 days. Sonographic estimated date of delivery: 06/19/2023. Estimated Weight: 3820 gm (+/- 558 gm). LMP percentile: NA%. heart rate: 150 beats per minute. number: 1 of 1. IMPRESSION: 1. Biophysical profile score is 6/8 due to the lack of breathing movements. Dictated by: Dictated on workstation # [id number]
[2023-06-28] MEDS ORDERED: ONDANSETRON INJECTION 4 MG/2 ML (SDV) IVP PRN (17:30)
[2023-06-28] MEDS ORDERED: Tetanus/Diphtheria/Pertussis (Acell) ADULT Vaccine 0.5 ML IM SCH (17:30)
[2023-06-28] MEDS ORDERED: MEASLES, MUMPS, RUBELLA VACCINE (MMR) SC SCH (17:30)
[2023-06-28] MEDS ORDERED: NALOXONE 0.4 MG/ML 1 ML VIAL IV PRN (17:30)
[2023-06-28] MEDS: OXYTOCIN DRIP PRE-MIX 500 ML IV SCH ×2 (18:15→22:19)
[2023-06-28] MEDS: KETOROLAC INJ 30 MG/ML VIAL IV SCH (18:16)
[2023-06-28] MEDS: DOCUSATE SODIUM 100 MG CAPSULE PO SCH (21:32)
[2023-06-28] MEDS: HYDROcodone/ACETAMINOPHEN 5 MG/325 MG TABLET PO PRN (21:33)
[2023-06-28] MEDS: CATHETER FLUSH 10 ML SYR IV SCH (22:33)
[2023-06-29 00:10] VITALS: BP 125/74
[2023-06-29] MEDS: KETOROLAC INJ 30 MG/ML VIAL IV SCH ×3 (00:10→11:51)
--- NOTE | 2023-06-29 02:52 | OPERATIVE REPORT ---
DATE OF SERVICE: 06/28/2023 PREOPERATIVE DIAGNOSES: 1. A 27-year-old at 39 weeks' gestation with no care. 2. Previous section x3. POSTOPERATIVE DIAGNOSES: 1. A 27-year-old at 39 weeks' gestation with no care. 2. Previous section x3. PROCEDURE: Repeat low transverse section. SURGEON: Ronald Arias DO ANESTHESIA: Spinal. ESTIMATED BLOOD LOSS: 500 mL. URINE OUTPUT: 100 mL clear at the end of the procedure. FLUIDS: 1200 mL lactated Ringer's solution. FINDINGS: A live male weighing 8 pounds 7 ounces, Apgars of 8 and 9. Grossly normal appearing uterus, bilateral fallopian tubes and ovaries. SPECIMEN SENT: Placenta. INDICATIONS FOR PROCEDURE: This patient presented to the labor and delivery unit with vaginal bleeding with no care. She had had 3 previous cesareans and planned on delivering at home; however, the bleeding brought her in as she was concerned due to history of placenta previa in the past. An ultrasound rule out previa; however, the patient was found to be greater than 39 weeks by her ultrasound and greater than 41 weeks by her last menstrual period. Due to this, I discussed with the patient and recommended proceeding with repeat . Risks of procedure discussed with the patient in detail including risk of waiting and not perform the . After all of her questions were answered she and her are agreeable to proceed. Consent was obtained, the patient was taken to the operating room. OPERATIVE DESCRIPTION IN DETAIL: Once in the operating room, spinal analgesia was administered and found to be adequate, was placed in supine position with leftward tilt, prepped and draped in normal sterile fashion. A timeout was performed. Anesthesia was tested. I then make a Pfannenstiel skin incision through the previously existing scar using knife and carried down to underlying fascia using Bovie cautery. The fascial incision extended laterally using Bovie cautery. The superior aspect of fascial incision was then grasped with Lauren clamps, tented up and dissected off the underlying rectus muscles. The inferior aspect of the fascial incision was then grasped with Lauren clamps, tented up and dissected off the underlying rectus muscles. Rectus muscles were dissected down the midline using sharp dissection, which exposed the peritoneum, which I entered bluntly and extended using blunt traction. Vinod ring retractor was placed in the peritoneal incision, which offers excellent lateral sidewall retraction. I identified the lower uterine segment, found to be thinned out. I make a low transverse incision to the vesicouterine peritoneum and bluntly dissected this off the lower uterine segment, creating a bladder flap. I then proceeded my myotomy until membranes were visualized, at which point I extended uterine incision laterally and superiorly using bandage scissors. Amniotomy was performed. In the process of doing this, clear fluid was noted. Infant was found vertex presentation. The 's head elevated up the incision where the nares and oropharynx were bulb suctioned as infant was delivered. There was a nuchal cord reduced x2. Anterior and posterior shoulders were delivered. The was brought to the operative field where cords were clamped and cut and infant handed off to waiting nurses in attendance. Cord blood was collected. Three-vessel cord, intact placenta was delivered spontaneously thereafter. IV Pitocin was initiated to facilitate uterine contraction. Uterine fundus confirmed by manual massage. The uterus was then exteriorized and cleared of all endometrial clots and debris. I then proceeded with closing the uterine incision using 0 Vicryl suture in a running locked fashion. Second layer of imbricating 0 Monocryl was placed. Excellent hemostasis was noted after doing this. I then placed the uterus back in the pelvis and copiously irrigated the pelvis using normal saline. Once again, there was no active bleeding noted from any of my dissection planes. I placed Interceed antiadhesive over my low transverse incision. I removed the Vinod retractor and then proceeded with closing the peritoneum and rectus muscles in one layer using 3-0 Vicryl suture in a running fashion. The fascia was reapproximated using 0 Vicryl suture in a running fashion. The subcutaneous tissue was reapproximated using 3-0 plain interrupted subcutaneous stitch and the skin reapproximated using 4-0 Monocryl in running subcuticular. Dermabond was applied to the incision, sterile dressing with adhesive white tape. The patient tolerated the procedure well and sent to recovery area in stable condition. Lap and sponge counts were correct at the end of the procedure. Instrument counts correct as well. Two grams of Ancef were given preoperatively for infection prophylaxis. Job ID: [id number] DocumentID: [id number] Dictated Date: 06/28/2023 17:10:48 Dip Painter Date: 06/29/2023 02:50:00 Dictated By: RONALD ARIAS DO
[2023-06-29 03:50] VITALS: BP 116/77
[2023-06-29 06:20] LABS: BASOPHILS % (AUTO) 0 % (0-10); EOSINOPHILS # (AUTO) 0.1 10^3/uL (0.0-0.3); EOSINOPHILS % (AUTO) 1 % (0-10); HEMATOCRIT 34 % (35-52); HEMOGLOBIN 10.9 g/dL (11.5-16.0); LYMPHOCYTES # (AUTO) 1.4 10^3/uL (1.0-4.0); LYMPHOCYTES % (AUTO) 15 % (12-44); MEAN CORPUSCULAR HEMOGLOBIN 30 pg (25-34); MEAN CORPUSCULAR HGB CONC 33 g/dL (32-36); MEAN CORPUSCULAR VOLUME 93 fL (80-99); MEAN PLATELET VOLUME 12.1 fL (9.0-12.2); MONOCYTES # (AUTO) 0.7 10^3/uL (0.0-1.0); MONOCYTES % (AUTO) 8 % (0-12); NEUTROPHILS % (AUTO) 76 % (42-75); PLATELET COUNT 144 10^3/uL (130-400); WHITE BLOOD COUNT 9.3 10^3/uL (4.3-11.0)
[2023-06-29] MEDS: HYDROcodone/ACETAMINOPHEN 5 MG/325 MG TABLET PO PRN ×2 (06:51→14:29)
[2023-06-29] MEDS: CATHETER FLUSH 10 ML SYR IV SCH ×2 (06:51→11:51)
--- NOTE | 2023-06-29 07:31 | Postpartum Progress Note ---
Note Note Day # 1 Subjective: Patient is without complaints. Ambulating, voiding. Tolerating a regular diet without nausea or vomiting. Normal lochia. Pain is well controlled with oral pain medications. Objective: Physical Exam: General - Alert and oriented, no apparent distress Abdomen - Soft, appropriately tender to palpation, non-distended, fundus firm at umbilicus Extremities - no edema, negative Angel's bilaterally Incision- c/d/i Assessment: POD 1 RLTCS Acute blood loss anemia Plan: Routine care. Encourage breast feeding. Encourage ambulation. Ferrous sulfate supplementation. Plan for discharge tomorrow Vitals - Labs Vital Signs - I&O Vital Signs Date Time Temp Pulse Resp B/P (MAP) Pulse Ox O2 Delivery O2 Flow Rate FiO2 06/29/23 03:50 36.2 73 18 116/77 (90) 99 Room Air 06/29/23 00:10 36.2 73 18 125/74 (91) 98 Room Air 06/28/23 22:58 Room Air 06/28/23 22:00 89 20 120/62 (81) 98 Room Air 06/28/23 21:00 36.6 86 20 125/69 (87) 98 Room Air 06/28/23 20:00 36.7 81 20 133/66 (88) 99 Room Air 06/28/23 19:20 75 20 127/68 (87) 98 Room Air 06/28/23 18:57 81 20 133/66 (88) 99 Room Air 06/28/23 18:28 70 20 146/57 (86) 100 Room Air 06/28/23 18:00 36.3 71 20 127/85 (99) 98 Room Air 06/28/23 17:50 Room Air 06/28/23 17:50 36.4 20 107/64 (78) 100 Room Air 06/28/23 17:45 Room Air 06/28/23 17:40 20 103/64 (77) 100 Room Air 06/28/23 17:30 20 118/78 (91) 100 Room Air 06/28/23 17:30 Room Air 06/28/23 17:20 20 111/61 (78) 99 Room Air 06/28/23 17:15 Room Air 06/28/23 17:10 20 114/53 (73) 97 Room Air 06/28/23 17:00 Room Air 06/28/23 17:00 20 107/41 (63) 97 Room Air 06/28/23 16:57 Room Air 06/28/23 16:57 36.4 20 99/35 (56) 97 Room Air 06/28/23 15:20 83 20 132/89 (103) Room Air 06/28/23 14:20 86 20 134/87 (103) 97 Room Air 06/28/23 13:20 82 20 130/72 (91) 98 Room Air 06/28/23 12:10 36.3 95 20 138/87 (104) 98 Room Air 06/28/23 11:00 36.3 95 18 98 Room Air I & O 06/29/23 07:00 Intake Total 3400 ml Output Total 2400 ml Balance 1000 ml Labs Laboratory Tests 06/28/23 13:17: Thyroid Stimulating Hormone (TSH) 2.08, Syphilis Serology Non-Reactive, Syphilis Total Antibody Negative, Hepatitis B Surface Antigen Non-Reactive, HIV (1&2) Ag and Ab Screen Referral Non-Reactive, Rubella IgG Antibody <0.10, Rubella IgG Ab Interpretation Negative, Rubeola (Measles) IgG Antibody <5.0, Rubeola (Measles) IgG Ab Interpret Negative 06/28/23 13:22: White Blood Count 10.9, Red Blood Count 3.99, Hemoglobin 11.6, Hematocrit 37, Mean Corpuscular Volume 92, Mean Corpuscular Hemoglobin 29, Mean Corpuscular Hemoglobin Concent 32, Red Cell Distribution Width 17.4H, Platelet Count 191, Mean Platelet Volume 11.8, Immature Granulocyte % (Auto) 1, Neutrophils (%) (Auto) 75, Lymphocytes (%) (Auto) 17, Monocytes (%) (Auto) 7, Eosinophils (%) (Auto) 1, Basophils (%) (Auto) 0, Neutrophils # (Auto) 8.2H, Lymphocytes # (Auto) 1.8, Monocytes # (Auto) 0.7, Eosinophils # (Auto) 0.1, Basophils # (Auto) 0.0, Immature Granulocyte # (Auto) 0.1 06/29/23 05:50: White Blood Count 9.3, Red Blood Count 3.62L, Hemoglobin 10.9L, Hematocrit 34L, Mean Corpuscular Volume 93, Mean Corpuscular Hemoglobin 30, Mean Corpuscular Hemoglobin Concent 33, Red Cell Distribution Width 17.5H, Platelet Count 144, Mean Platelet Volume 12.1, Immature Granulocyte % (Auto) 0, Neutrophils (%) (Auto) 76H, Lymphocytes (%) (Auto) 15, Monocytes (%) (Auto) 8, Eosinophils (%) (Auto) 1, Basophils (%) (Auto) 0, Neutrophils # (Auto) 7.0, Lymphocytes # (Auto) 1.4, Monocytes # (Auto) 0.7, Eosinophils # (Auto) 0.1, Basophils # (Auto) 0.0, Immature Granulocyte # (Auto) 0.0 PEE ARIAS DO Jun 29, 2023 07:31
--- NOTE | 2023-06-29 07:32 | Discharge Inst-Women's Service ---
Discharge Inst-Women's Serv Depart Medication/Instructions New, Converted or Re-Newed RX: Transmitted to Pharmacy Final Diagnosis POD 2 RLTCS Problems Reviewed?: Yes Consults/Follow Up Additional Follow Up: Yes Orders/Referrals Dr. Joyce in 7-10 days and in 6 weeks Activity Activity: Activity as Tolerated Driving Instructions: No Driving for 1 Week NO SMOKING: NO SMOKING Nothing Inside Vagina: No Douching, No [place], No Tampons Diet Discharge Diet: No Restrictions Symptoms to Report to : Bleeding Excessive, Pain Increased, Fever Over 101 Degrees F, Vaginal Bleeding Increase, Questions/Concerns For Any Problems or Questions: Contact Your Physician Skin/Wound Care Infection Signs and Symptoms: Increased Redness, Foul Odor of Wound, Increased Drainage, Skin Itchy or Has a Rash, Increased Swelling, Temperature Above 101 F Operative Area Clean and Dry: Keep Incision Clean/Dry Stitches/[place]/Dermabond: Dermabond, Care of Stitches Bathing Instructions: PEE Rosenbaum DO Jun 29, 2023 07:32
[2023-06-29] MEDS ORDERED: DOCU100C37 PO (07:33)
[2023-06-29] MEDS ORDERED: ACHD5005 PO (07:33)
[2023-06-29] MEDS ORDERED: IBUP-844 PO (07:33)
[2023-06-29] MEDS: DOCUSATE SODIUM 100 MG CAPSULE PO SCH (08:49)
[2023-06-29 09:50] VITALS: BP 112/70
[2023-06-29 12:00] VITALS: BP 122/76
--- NOTE | 2023-06-29 13:30 | Anesthesia-Regional Post-Op ---
Regional Patient Condition Mental Status: Alert, Oriented x3 Circulation: Same as Pre-Op Headache: Absent Sensation: Full Recovery Motor Block: Absent Post Op Complications Complications None Follow Up Care/Instructions Patient Instructions None needed. Anesthesia/Patient Condition Patient is doing well, no complaints, stable vital signs, no apparent adverse anesthesia problems. No complications reported per nursing. ARMANDO MERRITT CRNA Jun 29, 2023 13:30
[2023-06-29] MEDS ORDERED: IBUPROFEN 600 MG TABLET PO SCH (17:30)
== END 2023-06-29 20:00 | disposition home or self-care (01) | DRG 787 ==
LOC: WSo 10:50 → LDRP 10:50 → WSo 12:34 → LDRP 12:35
PROVIDERS: ADMIT Obstetrics & Gynecology; ATTEND Obstetrics & Gynecology
PROC: 10D00Z1 Extraction of Products of Conception, Low, Open Approach (ICD-10-PCS; principal; 2023-06-28 16:00)
DX: O34.211 Maternal care for low transverse scar from previous cesarean delivery (principal); D62 Acute posthemorrhagic anemia; Z3A.39 39 weeks gestation of pregnancy; Z37.0 Single live birth; O90.81 Anemia of the puerperium
CPT/HCPCS: 36415; 76805; 76819; 84443; 85025; 86762; 86765; 86780; 86850; 86900; 86901; 87081; 87340; 87389; 99213